=== PATIENT | female | born 2000 | race African-American/Black ===

== ENCOUNTER 2021-02-14 13:38 | Emergency (ER) | payer SELFPAY ==
[~2021-02-14] VITALS: Ht 167.6 cm; Wt 95.0 kg
[2021-02-14] MEDS ORDERED: MORPHINE SULFATE 4 MG/ML CPJ (NOT FOR IM USE) IV ONE (15:15)
[2021-02-14 17:36] VITALS: BP 145/80
== END 2021-02-14 17:45 | disposition home or self-care (01) ==
LOC: ER 13:38 → EDBD 13:38 → ER 17:45
DX: M25.521 Pain in right elbow (principal); J45.909 Unspecified asthma, uncomplicated; F12.10 Cannabis abuse, uncomplicated; Z88.0 Allergy status to penicillin; W01.0XXA Fall on same level from slipping, tripping and stumbling without subsequent striking against object, initial encounter; Y93.89 Activity, other specified; Y92.018 Other place in single-family (private) house as the place of occurrence of the external cause
CPT/HCPCS: 73080; 81025; 96374; 99283; J2270